=== PATIENT | male | born 1990 | race African-American/Black ===

== ENCOUNTER 2016-03-20 22:07 | Emergency (ER) | payer SELFPAY ==
[~2016-03-20] VITALS: Ht 177.8 cm; Wt 84.0 kg
[~2016-03-20 22:07] MED LIST: IBUP800T23 PO
[2016-03-20 22:12] VITALS: BP 162/93; PULSE 83; RESP 16; TEMP 97.6; O2SAT 98
--- NOTE | 2016-03-20 23:10 | PD ---
HPI Chief Complaint: Injury Time Seen by Provider: 23:08 Travel History International Travel<30 days: No Contact w/Intl Traveler<30days: No Traveled to known affect area: No History of Present Illness HPI 25-year-old black male presents to emergency department right sided rib pain after being elbowed playing basketball yesterday. He states the pain is mild to moderate. Worse when he takes a deep breath or coughs. He denies any other injuries. No shortness of breath or wheezing. PFSH Past Medical History Asthma: Yes Cancer: No Cardiovascular Problems: No Diminished Hearing: No Endocrine: No Gastrointestinal Disorders: No Genitourinary: No Immune Disorder: No Implanted Vascular Access Dvce: No Musculoskeletal: No Neurologic: No Psychiatric: No Reproductive: No Respiratory: Yes (ASTHMA) Immunizations Current: Yes Tetanus Vaccination: > 5 Years Influenza Vaccination: No Past Surgical History Surgical History: No Previous Surgery Other Surgery: No Social History Alcohol Use: No Tobacco Use: Yes (OCC) Substance Use: No Allergies-Medications (Allergen,Severity, Reaction): Coded Allergies: Ceclor (Verified Allergy, Intermediate, HIVES, 03/20/16) Reported Meds & Prescriptions Reported Meds & Active Scripts Active Review of Systems Except as stated in HPI: all other systems reviewed are Neg Physical Exam Narrative GENERAL: Well-developed, well-nourished in no apparent distress. Nontoxic appearing. HEAD: Normocephalic, atraumatic. EYES: Pupils equal round and reactive. Extraocular motions intact. No scleral icterus. No injection or drainage. ENT: Nose clear. Throat without erythema, tonsillar hypertrophy or exudate. Uvula midline. Airway patent. NECK: Trachea midline. Supple, nontender, moves head freely. No central bony tenderness or spasm. CARDIOVASCULAR: Regular rate and rhythm without murmurs, gallops, or rubs. CHEST: Tender right midaxillary line throughout without deformity or crepitance. No retractions or use of accessory muscles. RESPIRATORY: Clear to auscultation. Breath sounds equal bilaterally. No wheezes , rales, or rhonchi. GASTROINTESTINAL: Abdomen soft, non-tender, nondistended. No hepato-splenomegaly , or palpable masses. No guarding. EXTREMITIES: No clubbing, cyanosis, or edema. No joint tenderness. BACK: Nontender without deformity. No flank tenderness. NEUROLOGICAL: Awake, alert and oriented x 3 .Cranial nerves grossly intact. Motor and sensory grossly within normal limits. Normal speech. Data Data Last Documented VS Vital Signs Date Time Temp Pulse Resp B/P Pulse Ox O2 Delivery O2 Flow Rate FiO2 03/20/16 22:51 16 03/20/16 22:12 97.6 83 162/93 98 Room Air Orders Ribs, Uni (W/Exp Cxr-Min 3vw) (03/20/16 22:53) Acetamin-Hydrocod 325-5 Mg ([place] 5-325 (03/20/16 23:30) Ibuprofen (Motrin) (03/20/16 23:30) MDM Medical Decision Making Medical Screen Exam Complete: Yes Emergency Medical Condition: Yes Medical Record Reviewed: Yes Interpretation(s) Right RIBS: Negative for fracture. No pneumothorax. Differential Diagnosis MDM: High Differential diagnoses: Fracture, sprain, strain, dislocation, contusion, neurovascular injury Narrative Course X-ray is negative for bony injury. Patient is given Lortab 5 and Motrin 800 mg by mouth This is right rib contusion Diagnosis Primary Impression: Contusion of rib on right side Patient Instructions: General Instructions Departure Forms: Tests/Procedures, Work Release Special Instructions: Light-duty 1 week. No lifting greater than 25 pounds. Additional Instructions: Rest. Deep breaths every half hour. Diclofenac and Flexeril. Limited activities for the next 1-2 weeks. Return to the ER for problems. Follow-up with a medical doctor in one week. Med/Other Pt SpecificInfo: Prescription(s) given Scripts Cyclobenzaprine (Flexeril)10 Mg Tab10 Mg PO TID #30 TAB Prov:Meg Nunez DO 03/20/[address] 75 Mg Tabdr75 Mg PO BID #30 TAB Prov:Meg Nunez DO 03/20/16 Disposition: 01 DISCHARGE HOME Condition: Stable Nikolai Martinez Mar 20, 2016 23:10
[2016-03-20] MEDS ORDERED: DICL75TA PO (23:21)
[2016-03-20] MEDS ORDERED: CYCL1TAB29 PO (23:21)
[2016-03-20] MEDS ORDERED: IBUPROFEN 800 MG TAB PO ONE (23:30)
[2016-03-20] MEDS ORDERED: ACETAMINOPHEN/HYDROcodone 325 MG/5 MG TAB PO ONE (23:30)
--- NOTE | 2016-03-20 23:34 | RADRPT ---
EXAM DATE/TIME: 03/20/2016 23:26 [facility] COMPARISON: No previous studies available for comparison. INDICATIONS : Right side rib pain after playing basketball. MEDICAL HISTORY : None. SURGICAL HISTORY : None. ENCOUNTER: Initial ACUITY: 2 days PAIN SCORE: 7/10 LOCATION: Right chest FINDINGS: Multiple views of the right ribs were performed. There is no evidence of fracture. No destructive l esions or areas of periosteal thickening are seen. Patient has a moderate S-shaped thoracolumbar sco liosis. The thoracic portion of the curvature is dextroconvex and centered around T8/T9. Expiratory view of the chest is negative for pneumothorax. The mediastinal structures are midline. CONCLUSION: 1. No perceptible right rib fracture. 2. No evidence of acute cardiopulmonary disease. 3. Moderate S-shaped thoracolumbar curvature. Atilio Worley MD on March 20, 2016 at 23:30 Board Certified Radiologist. This report was verified electronically.
== END 2016-03-20 23:44 | disposition home or self-care (01) ==
LOC: NEPB 22:07
DX: S20.211A Contusion of right front wall of thorax, initial encounter (principal); W50.0XXA Accidental hit or strike by another person, initial encounter; Y93.67 Activity, basketball
CPT/HCPCS: 71101; 99283

== ENCOUNTER 2016-10-17 02:02 | Emergency (ER) | payer SELFPAY ==
[~2016-10-17] VITALS: Ht 175.3 cm; Wt 81.5 kg
[~2016-10-17 02:02] MED LIST changes: +CYCL1TAB29 PO; +DICL75TA PO; -IBUP800T23 PO
[2016-10-17 02:04] VITALS: BP 157/88; PULSE 69; RESP 15; TEMP 97.9; O2SAT 98
[2016-10-17] MEDS ORDERED: HYDR-3583 PO (02:17)
[2016-10-17 02:26] VITALS: BP 141/84; PULSE 56; RESP 18; O2SAT 100
[2016-10-17] MEDS ORDERED: LORazepam 1 MG TAB PO ONE (03:00)
--- NOTE | 2016-10-17 03:50 | PD ---
HPI Chief Complaint: Palpitations Time Seen by Provider: 02:37 Travel History International Travel<30 days: No Contact w/Intl Traveler<30days: No Traveled to known affect area: No History of Present Illness HPI 26yo M with no significant PMH presents to the ED with c/o palpitations today. States he felt a little sob and thinks he may be having a panic attack. States he was unable to sleep. Had a few episodes of this for the last few days. Denies any chest pain, fever, n/v, abdominal pain, focal weakness or numbness. However, he sometimes feels rushes of heat. Denies any history of PE, DVT, recent surgery, recent traveling, drug use. PFSH Past Medical History Asthma: Yes Cancer: No Cardiovascular Problems: No Diminished Hearing: No Endocrine: No Gastrointestinal Disorders: No Genitourinary: No Immune Disorder: No Implanted Vascular Access Dvce: No Musculoskeletal: No Neurologic: No Psychiatric: No Reproductive: No Respiratory: Yes (Asthma) Immunizations Current: No Tetanus Vaccination: > 5 Years Influenza Vaccination: No Past Surgical History Surgical History: No Previous Surgery Other Surgery: No Social History Alcohol Use: No Tobacco Use: Yes (OCC) Substance Use: No Allergies-Medications (Allergen,Severity, Reaction): Coded Allergies: cefaclor (Unverified Allergy, Intermediate, HIVES, 10/02/16) Reported Meds & Prescriptions Reported Meds & Active Scripts Active Reported Hydrocodone-Acetaminophen 10-325 mg Tab 1 Tab PO BID PRN Review of Systems Except as stated in HPI: all other systems reviewed are Neg Physical Exam Narrative GENERAL: 26yo M not in distress. SKIN: Focused skin assessment warm/dry. HEAD: Atraumatic. Normocephalic. EYES: Pupils equal and round. No scleral icterus. No injection or drainage. CARDIOVASCULAR: Regular rate and rhythm. No murmur appreciated. HR 64bpm. RESPIRATORY: No accessory muscle use. Clear to auscultation. Breath sounds equal bilaterally. GASTROINTESTINAL: Abdomen soft, non-tender, nondistended. No rebound tenderness or guarding. MUSCULOSKELETAL: No obvious deformities. No clubbing. No cyanosis. No edema. NEUROLOGICAL: Awake and alert. No obvious cranial nerve deficits. Motor grossly within normal limits. Normal speech. PSYCHIATRIC: Seems a little anxious. Data Data Last Documented VS Vital Signs Date Time Temp Pulse Resp B/P (MAP) Pulse Ox O2 Delivery O2 Flow Rate FiO2 10/17/16 02:26 56 18 141/84 (103) 100 Room Air 10/17/16 02:04 97.9 Orders Orders Chest, Single Ap (10/17/16 ) Lorazepam (Ativan) (10/17/16 03:00) MDM Medical Decision Making Medical Screen Exam Complete: Yes Emergency Medical Condition: Yes Interpretation(s) EKG: NSR 61bpm. TWI III. No ST segment elevation or depression. Differential Diagnosis Anxiety vs. Pneumonia vs. pleural effusion Narrative Course 26yo M with no significant history here with episodes of palpitations and sob. Sounds like anxiety. Pt's heart rate is currently 64bpm and saturating at 100% on RA. Pt is in no acute distress. Denies any chest pain to me. Pt given ativan 1mg PO. Pt reevaluated at bedside and said his symptoms resolved. States sob, palpitations are gone. Pt never had any chest pain. CXR negative. Return precautions given. Diagnosis Primary Impression: Palpitations Patient Instructions: General Instructions Departure Forms: Tests/Procedures Additional Instructions: Please follow up with [facility] in 3-7 days. Return to the ED if symptoms worsen. Med/Other Pt SpecificInfo: No Change to Meds Disposition: 01 DISCHARGE HOME Condition: Stable Meg Nunez Oct 17, 2016 03:50
--- NOTE | 2016-10-17 04:11 | RADRPT ---
EXAM DATE/TIME: 10/17/2016 03:34 [facility] COMPARISON: No previous studies available for comparison. INDICATIONS : Shortness of breath and chest pain. MEDICAL HISTORY : None. SURGICAL HISTORY : None. ENCOUNTER: Initial ACUITY: 4 - 6 days PAIN SCORE: 8/10 LOCATION: Bilateral chest FINDINGS: Portable AP view of the chest demonstrates a normal-sized cardiac silhouette. No effusion, consolidat ion, or pneumothorax is visualized. The bones and soft tissues demonstrate no acute abnormality. CONCLUSION: Normal single view chest x-ray. Atilio Lozada MD on October 17, 2016 at 4:09 Board Certified Radiologist. This report was verified electronically.
[2016-10-17 05:20] VITALS: BP 123/69; PULSE 75; RESP 16; O2SAT 99
--- NOTE | 2016-10-17 17:10 | EKG ---
Date Performed: 10/17/2016 Time Performed: 02:25:18 PTAGE: 26 years EKG: Sinus rhythm Since previous tracing, no significant change noted NORMAL ECG PREVIOUS TRACING : 10/12/2016 06.45 DOCTOR: Farnaz Laws Interpretating Date/Time 10/17/2016 17:04:57
== END 2016-10-17 05:25 | disposition home or self-care (01) ==
LOC: NEPC 02:02
DX: R00.2 Palpitations (principal); R06.02 Shortness of breath; J45.909 Unspecified asthma, uncomplicated; Z72.0 Tobacco use
CPT/HCPCS: 71010; 93005; 99283